=== PATIENT | male | born 1940 | race Asian ===

== ENCOUNTER 2021-10-14 22:50 | Inpatient (IN) | payer MEDICARE, OTHER ==
[~2021-10-14] VITALS: Ht 167.6 cm; Wt 67.1 kg
--- NOTE | 2021-10-14 22:50 | NUR ---
Received/admitted patient from [facility] via ambulance. Awake and alert, oriented to his room, staff, call lights and bed and TV control. Routine admission care done. Plan of care initiated.
[2021-10-14 23:10] VITALS: BP 137/79
[2021-10-14] MEDS ORDERED: SPIR25TA6 PO (23:59)
[2021-10-14] MEDS ORDERED: ATOR10TA PO (23:59)
[2021-10-14] MEDS ORDERED: ONDA4TAB11 PO (23:59)
[2021-10-14] MEDS ORDERED: SENN-261 PO (23:59)
[2021-10-14] MEDS ORDERED: AMLO-212 PO (23:59)
[2021-10-14] MEDS ORDERED: LOSA25TA27 PO (23:59)
[2021-10-14] MEDS ORDERED: CARV25TA2 PO (23:59)
[2021-10-15 04:15] VITALS: BP 104/58
[2021-10-15] MEDS ORDERED: SENNOSIDES 1 TABLET PO PRN (06:45)
--- NOTE | 2021-10-15 07:40 | NUR ---
DR STARKIAN HERE TO SEE PATIENT WITH NEW ORDERS AND NOTED.
[2021-10-15 08:00] VITALS: BP 139/69
[2021-10-15] MEDS: SPIRONOLACTONE 25 MG TABLET PO SCH (09:13)
[2021-10-15] MEDS: LOSARTAN POTASSIUM 25 MG TABLET PO SCH (09:14)
[2021-10-15] MEDS: CARVEDILOL 25 MG TABLET PO SCH ×2 (09:14→16:31)
[2021-10-15] MEDS: REMEDY ESSENTIAL ZINC PASTE 113 GM TOP SCH ×2 (09:15→20:16)
[2021-10-15] MEDS: AMLODIPINE 5 MG TABLET PO SCH ×2 (09:15→16:31)
--- NOTE | 2021-10-15 11:30 | NUR ---
DR AGUIRRE HERE TO SEE AND EXAMINE PATIENT WITH NO NEW ORDERS AT THIS TIME
[2021-10-15] MEDS: ACETAMINOPHEN 325 MG TABLET PO PRN (14:41)
--- NOTE | 2021-10-15 14:42 | NUR ---
PATIENT C/O GENERALISED BODY ACHE MD AWARE WITH ORDER FOR TYLENOL GIVEN ORDERED PATIENTS DAUGHTER IS AT THE BEDSIDE AND ASSISTING WITH TRANSLATION.
[2021-10-15 15:58] VITALS: BP 111/65
--- NOTE | 2021-10-15 16:18 | NUR ---
Social Work Stroke Resources: Relocation Commissioner met with patient and pt's family and informed about the importance of stroke. Patient accepted stroke referrals such as: Stroke Family [facility] at (7-810-9-STROKE) and Caring for a stroke survivor ( ). air brake worker also educated patient on the signs of Stroke and to immediately call 911. Relocation Commissioner provided patient with a stroke educational packet with information such as; Dietary food, what stroke is, risks, emotional support, finding support, medical management, and effects of stroke. SW provided patient with the following caregiving resources: [facility]; ([phone]), [facility]; ([phone]), [facility]; ([phone]).
--- NOTE | 2021-10-15 16:48 | NUR ---
ELIER Stroke Depression Assessment Note: ELIER contacted pt's nurse and requested a psych consult for the pt as pt scored 17 on the post stroke depression phq. Pt's daughter is informed.
--- NOTE | 2021-10-15 17:00 | NUR ---
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
--- NOTE | 2021-10-15 18:00 | NUR ---
RESTING IN BED WITH NO S/S OF DISCOMFORTS AT THIS TIME
[2021-10-15 20:00] VITALS: BP 120/71
[2021-10-15] MEDS: ATORVASTATIN 10 MG TABLET PO SCH (20:16)
[2021-10-16 04:00] VITALS: BP 127/79
--- NOTE | 2021-10-16 07:44 | NUR ---
RECEIVED IN BED AWAKE ALERT AND ORIENTED WITH LANGUAGE BARRIERS ALL NEEDS ANTICIPATED AND SATISFIED MAX ASSIST FOR ALL ADL LEFT LOWER EXT WEAKER THAN THE LEFT UPPER BUT RIGHT UPPER AND RIGHT LOWER EXT WITH GOOD ROM AND SCALLOP SHUCKER CALL LIGHTS AND PERSONAL BELONGINGS ARE WITHIN EASY REACH WILL CONTINUE TO OBSERVE AND FOLLOW PLAN OF CARE WITH PT/OT OUTLINED.
[2021-10-16 07:58] VITALS: BP 104/68
[2021-10-16] MEDS: SPIRONOLACTONE 25 MG TABLET PO SCH (08:28)
[2021-10-16] MEDS: CARVEDILOL 25 MG TABLET PO SCH ×2 (08:29→16:47)
[2021-10-16] MEDS: LOSARTAN POTASSIUM 25 MG TABLET PO SCH (08:29)
[2021-10-16] MEDS: AMLODIPINE 5 MG TABLET PO SCH (08:30)
[2021-10-16] MEDS: REMEDY ESSENTIAL ZINC PASTE 113 GM TOP SCH ×2 (08:31→20:52)
--- NOTE | 2021-10-16 10:36 | NUR ---
DR BORGES OKAYED PSYCH EVAL PER MHU DR MAYORGA IS FLEET SALESPERSON SO I CALLED DR MAYORGA SPOKE WITH HER STATED WILL SEE THE PATIENT TOMORROW CALLED [facility] SENT OVER THE FACE SHEET AND NOTIFIED MELIDA THE NURSE.
--- NOTE | 2021-10-16 13:04 | NUR ---
PATIENT SEEN BY THE PHYSICAL THERAPY AND PER THE THERAPIST HE WAS ONLY ABLE TO STAND AND BACK TO BED.
[2021-10-16 16:00] VITALS: BP 115/66
--- NOTE | 2021-10-16 17:30 | NUR ---
PATIENT NOTED TO BE DISORIENTED DID NOT KNOW WHAT HE WANTED SHOWED HIM THE TRANSLATION PAPER BUT WAS UNABLE TO FIGURE OUT WHAT HE WANTS SO I CALLED HIS DAUGHTER CARMEN AND AFTER SHE SPOKE WITH HIM STATED THAT HE WANTS TO GO HOME SHE STATED THAT SHE WILL COME IN TO SEE PATIENT AND BRING HIM SOME OF HIS HOME FOOD.
--- NOTE | 2021-10-16 18:34 | NUR ---
PATIENTS DAUGHTER CARMEN HERE BROUGHT HIM SOME PURRED FOOD AND HE ATE 100 PERCENT OF THIS FOOD.SEATED UPRIGHT FOR A WHILE WILL CONTINUE TO OBSERVE.
[2021-10-16 20:00] VITALS: BP 128/60
[2021-10-16] MEDS: ATORVASTATIN 10 MG TABLET PO SCH (20:51)
[2021-10-17 04:00] VITALS: BP 127/63
[2021-10-17 08:00] VITALS: BP 142/62
[2021-10-17] MEDS: AMLODIPINE 5 MG TABLET PO SCH (09:13)
[2021-10-17] MEDS: SPIRONOLACTONE 25 MG TABLET PO SCH (09:13)
[2021-10-17] MEDS: CARVEDILOL 25 MG TABLET PO SCH ×2 (09:13→16:42)
[2021-10-17] MEDS: LOSARTAN POTASSIUM 25 MG TABLET PO SCH (09:13)
[2021-10-17] MEDS: REMEDY ESSENTIAL ZINC PASTE 113 GM TOP SCH ×2 (09:14→20:43)
[2021-10-17] MEDS: ENSURE ENLIVE (VAN) 240 ML LIQUID PO SCH ×2 (13:33→16:42)
--- NOTE | 2021-10-17 14:41 | NUR ---
INTERDISCIPLINARY TEAM CONFERENCE
--- NOTE | 2021-10-17 15:11 | NUR ---
INDIVIDUALIZED PLAN OF CARE
[2021-10-17 16:29] VITALS: BP 126/83
--- NOTE | 2021-10-17 18:21 | NUR ---
The patient remained stable during the shift. no acute distress identified. no pain identified. all due meds given. all needs attended. aspiration precaution maintained. Dtr came to visit and brought soup, thickened. Educated on aspiration precaution, noted with understanding. safety measures maintained. the patient used urinal in the afternoon. will endorse to the next shift for continuity of care.
[2021-10-17 20:00] VITALS: BP 122/71
[2021-10-17] MEDS: ATORVASTATIN 10 MG TABLET PO SCH (20:35)
[2021-10-18 04:00] VITALS: BP 129/89
--- NOTE | 2021-10-18 05:38 | NUR ---
Received pt asleep on bed upon initial rounds, easily arousable for care. Denies pain and discomfort. Due medication given and tolerated well. Aspiration precaution observed. Slept throughout the night. All needs attended. Call light placed within reach. Frequent visual checks done.
[2021-10-18 07:43] VITALS: BP 106/71
[2021-10-18 07:53] VITALS: BP 122/56
[2021-10-18] MEDS: SPIRONOLACTONE 25 MG TABLET PO SCH (08:32)
[2021-10-18] MEDS: CARVEDILOL 25 MG TABLET PO SCH ×2 (08:32→16:33)
[2021-10-18] MEDS: LOSARTAN POTASSIUM 25 MG TABLET PO SCH (08:33)
[2021-10-18] MEDS: AMLODIPINE 5 MG TABLET PO SCH (08:33)
[2021-10-18] MEDS: ENSURE ENLIVE (VAN) 240 ML LIQUID PO SCH ×3 (08:33→16:34)
[2021-10-18] MEDS: REMEDY ESSENTIAL ZINC PASTE 113 GM TOP SCH ×2 (08:37→20:41)
--- NOTE | 2021-10-18 10:00 | NUR ---
Received pt AAOx1 to 2 resting on bed upon initial rounds, respiration even and unlabored at room air O2 sat 97% Denies pain and discomfort. Due medication given and tolerated well. seen by speech therapy. Aspiration precaution in place with puree, honey thick liquids diet needs to used spoon for feeding.Up with PT sitting at bed side chair All needs attended. Call light placed within reach. Frequent visual checks done.
--- NOTE | 2021-10-18 13:34 | NUR ---
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
[2021-10-18 15:20] VITALS: BP 116/63
[2021-10-18] MEDS: ACETAMINOPHEN 325 MG TABLET PO PRN (15:47)
[2021-10-18 20:00] VITALS: BP 141/67
[2021-10-18] MEDS: ATORVASTATIN 10 MG TABLET PO SCH (20:39)
[2021-10-19 04:00] VITALS: BP 127/76
--- NOTE | 2021-10-19 05:54 | NUR ---
Received pt asleep on bed upon initial rounds, easily arousable for care. Denies pain and discomfort. Due medication given and tolerated well. Aspiration precaution observed. Slept intermittently throughout the night. Called a few times for sips of water. Pt on diaper, but asks for urinal twice tonight. Able to void without difficulty. All needs attended. Call light placed within reach. Frequent visual checks done.
[2021-10-19 07:39] VITALS: BP 120/62
[2021-10-19] MEDS: LOSARTAN POTASSIUM 25 MG TABLET PO SCH (08:15)
[2021-10-19] MEDS: AMLODIPINE 5 MG TABLET PO SCH (08:15)
[2021-10-19] MEDS: ENSURE ENLIVE (VAN) 240 ML LIQUID PO SCH ×3 (08:15→16:44)
[2021-10-19] MEDS: SPIRONOLACTONE 25 MG TABLET PO SCH (08:15)
[2021-10-19] MEDS: CARVEDILOL 25 MG TABLET PO SCH ×2 (08:15→16:43)
[2021-10-19] MEDS: REMEDY ESSENTIAL ZINC PASTE 113 GM TOP SCH ×2 (08:16→20:27)
[2021-10-19 15:29] VITALS: BP 118/79
--- NOTE | 2021-10-19 18:24 | NUR ---
Patient remained stable during the shift. no distress identified. Denies pain. Aspiration precaution maintained. Kept call light within reach. All due meds given. all needs attended. Safety measures maintained. Will endorse to the next shift for continuity of care
[2021-10-19 20:00] VITALS: BP 133/66
[2021-10-19] MEDS: ATORVASTATIN 10 MG TABLET PO SCH (20:26)
[2021-10-20 04:00] VITALS: BP 129/63
[2021-10-20 08:25] VITALS: BP 114/90
[2021-10-20] MEDS: ENSURE ENLIVE (VAN) 240 ML LIQUID PO SCH ×3 (10:10→17:37)
[2021-10-20] MEDS: CARVEDILOL 25 MG TABLET PO SCH ×2 (10:10→17:37)
[2021-10-20] MEDS: SPIRONOLACTONE 25 MG TABLET PO SCH (10:10)
[2021-10-20] MEDS: LOSARTAN POTASSIUM 25 MG TABLET PO SCH (10:10)
[2021-10-20] MEDS: AMLODIPINE 5 MG TABLET PO SCH (10:10)
[2021-10-20] MEDS: REMEDY ESSENTIAL ZINC PASTE 113 GM TOP SCH ×2 (10:11→20:33)
[2021-10-20 15:34] VITALS: BP 114/66
[2021-10-20] MEDS: ATORVASTATIN 10 MG TABLET PO SCH (20:31)
[2021-10-20 20:59] VITALS: BP 127/43
--- NOTE | 2021-10-21 01:39 | NUR ---
Awake and alert. all needs attended. VSS. No acute distress noted. Fall precautions maintained. Incontinent of urine and BM. Kept clean and dry. Repositioned for comfort.
[2021-10-21] MEDS: ACETAMINOPHEN 325 MG TABLET PO PRN (03:57)
[2021-10-21] MEDS ORDERED: LORAZEPAM 2 MG/1 ML VIAL IM ONE (04:30)
--- NOTE | 2021-10-21 04:43 | NUR ---
Patient gets very confused and yelling this time. Trying to get OOB and saying wanting to go home. Medicated with Tylenol but still trying to get OOB. No PRN for agitation. ASIF valenzuela got an order for Ativan 1 mg IM x1 given as ordered. Will monitor patient for further behavioral activity. Siderails up for safety. Patient to be started on seroquel 12.5 mg BID.
[2021-10-21 04:47] VITALS: BP 145/76
--- NOTE | 2021-10-21 07:22 | NUR ---
Received patient asleep on bed upon initial rounds, Aspiration precaution observed. All needs attended. Call light placed within reach. Frequent visual checks done.
[2021-10-21 08:00] VITALS: BP 122/58
[2021-10-21] MEDS: AMLODIPINE 5 MG TABLET PO SCH (09:07)
[2021-10-21] MEDS: LOSARTAN POTASSIUM 25 MG TABLET PO SCH (09:07)
[2021-10-21] MEDS: QUETIAPINE FUMARATE 25 MG TABLET PO SCH ×2 (09:08→21:26)
[2021-10-21] MEDS: SPIRONOLACTONE 25 MG TABLET PO SCH (09:08)
[2021-10-21] MEDS: ENSURE ENLIVE (VAN) 240 ML LIQUID PO SCH ×3 (09:09→16:51)
[2021-10-21] MEDS: CARVEDILOL 25 MG TABLET PO SCH ×2 (09:09→16:51)
[2021-10-21] MEDS: REMEDY ESSENTIAL ZINC PASTE 113 GM TOP SCH ×2 (09:10→21:26)
[2021-10-21 15:58] VITALS: BP 118/78
--- NOTE | 2021-10-21 19:45 | NUR ---
Received patient in bed. Awake, alert and oriented to person and place. Reoriented patient to date accordingly. No acute distress noted at this time. Aspiration and safety precautions initiated. Will continue to monitor.
[2021-10-21 20:58] VITALS: BP 130/76
[2021-10-21] MEDS: ATORVASTATIN 10 MG TABLET PO SCH (21:26)
[2021-10-22 04:30] VITALS: BP 117/69
--- NOTE | 2021-10-22 05:38 | NUR ---
Patient slept through the night. No acute distress noted at this time. Compliant with medication regimen. All needs attended to and met. Safety and aspirations maintained. Will endorse to day shift nurse.
[2021-10-22 08:05] VITALS: BP 105/84
[2021-10-22] MEDS: AMLODIPINE 5 MG TABLET PO SCH (09:00)
[2021-10-22] MEDS: LOSARTAN POTASSIUM 25 MG TABLET PO SCH (09:00)
[2021-10-22] MEDS: CARVEDILOL 25 MG TABLET PO SCH ×2 (09:00→17:40)
[2021-10-22] MEDS: QUETIAPINE FUMARATE 25 MG TABLET PO SCH ×2 (10:15→20:37)
[2021-10-22] MEDS: SPIRONOLACTONE 25 MG TABLET PO SCH (10:16)
[2021-10-22] MEDS: ENSURE ENLIVE (VAN) 240 ML LIQUID PO SCH ×3 (10:18→17:40)
[2021-10-22] MEDS: REMEDY ESSENTIAL ZINC PASTE 113 GM TOP SCH ×2 (10:19→20:38)
--- NOTE | 2021-10-22 12:13 | NUR ---
Pt is awake, sat in chair with PT. Medications given crushed. Pt has been evaluated by marcial YEE thick liquids required for aspiration precaution. Family at bedside, educated to not give liquids to pt without proper amount of thickener. Comfort measures provided, call light within reach. Will continue to monitor.
[2021-10-22 16:20] VITALS: BP 142/72
--- NOTE | 2021-10-22 18:33 | NUR ---
Pt is more alert, speaks only mandarin but responds with nod when asked how he is doing. Family at bedside feeding pt dinner. Pt is cooperative, comfort measure provided. Will endorse to cnc machinist 2nd shift.
[2021-10-22 20:12] VITALS: BP 117/78
[2021-10-22] MEDS: ATORVASTATIN 10 MG TABLET PO SCH (20:37)
[2021-10-23 04:12] VITALS: BP_SYST 143; BP_SYST 163; BP_DIAS 77; BP_DIAS 90
[2021-10-23 08:06] VITALS: BP 133/86
[2021-10-23] MEDS: AMLODIPINE 5 MG TABLET PO SCH (09:05)
[2021-10-23] MEDS: SPIRONOLACTONE 25 MG TABLET PO SCH (09:05)
[2021-10-23] MEDS: QUETIAPINE FUMARATE 25 MG TABLET PO SCH ×2 (09:05→20:47)
[2021-10-23] MEDS: ENSURE ENLIVE (VAN) 240 ML LIQUID PO SCH ×3 (09:06→17:35)
[2021-10-23] MEDS: LOSARTAN POTASSIUM 25 MG TABLET PO SCH (09:06)
[2021-10-23] MEDS: REMEDY ESSENTIAL ZINC PASTE 113 GM TOP SCH ×2 (09:06→20:48)
[2021-10-23] MEDS: CARVEDILOL 25 MG TABLET PO SCH ×2 (09:06→17:00)
[2021-10-23 16:00] VITALS: BP 109/64
[2021-10-23] MEDS: ATORVASTATIN 10 MG TABLET PO SCH (20:48)
[2021-10-23 21:37] VITALS: BP 111/63
[2021-10-24 04:00] VITALS: BP 117/72
[2021-10-24 07:30] VITALS: BP 118/91
[2021-10-24] MEDS: QUETIAPINE FUMARATE 25 MG TABLET PO SCH ×2 (08:49→20:41)
[2021-10-24] MEDS: SPIRONOLACTONE 25 MG TABLET PO SCH (08:49)
[2021-10-24] MEDS: LOSARTAN POTASSIUM 25 MG TABLET PO SCH (08:50)
[2021-10-24] MEDS: CARVEDILOL 25 MG TABLET PO SCH ×2 (08:50→17:00)
[2021-10-24] MEDS: AMLODIPINE 5 MG TABLET PO SCH (08:50)
[2021-10-24] MEDS: ENSURE ENLIVE (VAN) 240 ML LIQUID PO SCH ×3 (08:51→17:03)
[2021-10-24] MEDS: REMEDY ESSENTIAL ZINC PASTE 113 GM TOP SCH ×2 (08:51→20:45)
--- NOTE | 2021-10-24 13:34 | NUR ---
INTERDISCIPLINARY TEAM CONFERENCE
[2021-10-24 17:18] VITALS: BP 107/68
[2021-10-24 20:00] VITALS: BP 108/56
[2021-10-24] MEDS: ATORVASTATIN 10 MG TABLET PO SCH (20:41)
--- NOTE | 2021-10-25 02:05 | NUR ---
Quiet night. No distress noted. Will monitor patient. Tolerated po meds well. continent of bowel and bladder. No BM noted this shift. Fall precautions maintained. Call sanchez within reach. Siderails up for safety. VSS.
[2021-10-25 04:39] VITALS: BP 92/50
[2021-10-25 07:35] VITALS: BP 124/86
[2021-10-25] MEDS: CARVEDILOL 25 MG TABLET PO SCH ×2 (09:17→17:11)
[2021-10-25] MEDS: AMLODIPINE 5 MG TABLET PO SCH (09:17)
[2021-10-25] MEDS: LOSARTAN POTASSIUM 25 MG TABLET PO SCH (09:18)
[2021-10-25] MEDS: REMEDY ESSENTIAL ZINC PASTE 113 GM TOP SCH ×2 (09:18→20:46)
[2021-10-25] MEDS: SPIRONOLACTONE 25 MG TABLET PO SCH (09:18)
[2021-10-25] MEDS: QUETIAPINE FUMARATE 25 MG TABLET PO SCH ×2 (09:18→20:45)
[2021-10-25] MEDS: ENSURE ENLIVE (VAN) 240 ML LIQUID PO SCH ×3 (09:18→17:11)
[2021-10-25 15:08] VITALS: BP 130/74
[2021-10-25 20:00] VITALS: BP 128/62
[2021-10-25] MEDS: ATORVASTATIN 10 MG TABLET PO SCH (20:44)
--- NOTE | 2021-10-25 21:36 | NUR ---
Awake alert and oriented x2-3. Needs attended. Denies any pain nor any discomfort. Will monitor patient. Incontinent of urine x2 Will monitor patient. No behavioral activity noted.
[2021-10-26 04:00] VITALS: BP 121/74
[2021-10-26 07:35] VITALS: BP 137/69
[2021-10-26] MEDS: LOSARTAN POTASSIUM 25 MG TABLET PO SCH (09:06)
[2021-10-26] MEDS: CARVEDILOL 25 MG TABLET PO SCH ×2 (09:06→17:33)
[2021-10-26] MEDS: SPIRONOLACTONE 25 MG TABLET PO SCH (09:06)
[2021-10-26] MEDS: AMLODIPINE 5 MG TABLET PO SCH (09:06)
[2021-10-26] MEDS: REMEDY ESSENTIAL ZINC PASTE 113 GM TOP SCH ×2 (09:07→21:34)
[2021-10-26] MEDS: ENSURE ENLIVE (VAN) 240 ML LIQUID PO SCH ×3 (09:07→17:33)
[2021-10-26 15:35] VITALS: BP 112/55
--- NOTE | 2021-10-26 15:49 | NUR ---
Received PT Awake alert and oriented x 2-3. Mandarin speaking. Denies any pain nor any discomfort. Up in a W/C by PT for therapeutic exercises tolerated pt seen by speech therapy with an upgrade Diet to nectar thick liquids dysphagia ground moist, daughter Minal made aware, Will monitor patient. CT of the head without contrast done as per ordered. Incontinent B&B urine x2 Will continue to monitor for safety and comfort monitor.
--- NOTE | 2021-10-26 17:15 | NUR ---
Received a called from the Neurologist DR Iverson with new order for aspiring 81 mg daily and increase the Lipitor to 20 mg order noted and carry out.
--- NOTE | 2021-10-26 19:00 | NUR ---
Received patient on bed awake, no shortness of breath noted. With bowel movement at this time, cleaned up, diaper changed, repositioned for comfort.
[2021-10-26 20:00] VITALS: BP 102/52
[2021-10-26] MEDS: QUETIAPINE FUMARATE 25 MG TABLET PO SCH (21:33)
[2021-10-26] MEDS: ATORVASTATIN 20 MG TABLET PO SCH (21:33)
[2021-10-27 04:00] VITALS: BP 114/75
--- NOTE | 2021-10-27 06:28 | NUR ---
patient able to slept well, able to tolerate fluids offered. repositioned for comfort. Left on bed in fair condition.
[2021-10-27 08:00] VITALS: BP 114/74
[2021-10-27] MEDS: SPIRONOLACTONE 25 MG TABLET PO SCH (08:31)
[2021-10-27] MEDS: LOSARTAN POTASSIUM 25 MG TABLET PO SCH (08:32)
[2021-10-27] MEDS: AMLODIPINE 5 MG TABLET PO SCH (08:32)
[2021-10-27] MEDS: ASPIRIN 81 MG TAB.CHEW PO SCH (08:32)
[2021-10-27] MEDS: CARVEDILOL 25 MG TABLET PO SCH ×2 (08:32→16:53)
[2021-10-27] MEDS: REMEDY ESSENTIAL ZINC PASTE 113 GM TOP SCH ×2 (08:33→21:34)
[2021-10-27] MEDS: ENSURE ENLIVE (VAN) 240 ML LIQUID PO SCH ×3 (08:42→17:27)
--- NOTE | 2021-10-27 09:00 | NUR ---
Received PT Awake alert and oriented x 2-3. Mandarin speaking. Denies any pain nor any discomfort. Up in a W/C by PT for therapeutic exercises tolerated well . Incontinent B&B kept clean and dry ,son at bed side. Will continue to monitor for safety and comfort .
[2021-10-27 16:29] VITALS: BP 104/59
[2021-10-27 20:21] VITALS: BP 97/49
[2021-10-27] MEDS: QUETIAPINE FUMARATE 25 MG TABLET PO SCH (21:33)
[2021-10-27] MEDS: ATORVASTATIN 20 MG TABLET PO SCH (21:33)
[2021-10-28 04:24] VITALS: BP 123/61
[2021-10-28 09:43] VITALS: BP 126/67
[2021-10-28] MEDS: ASPIRIN 81 MG TAB.CHEW PO SCH (10:25)
[2021-10-28] MEDS: LOSARTAN POTASSIUM 25 MG TABLET PO SCH (10:25)
[2021-10-28] MEDS: CARVEDILOL 25 MG TABLET PO SCH ×2 (10:26→18:00)
[2021-10-28] MEDS: SPIRONOLACTONE 25 MG TABLET PO SCH (10:26)
[2021-10-28] MEDS: AMLODIPINE 5 MG TABLET PO SCH (10:26)
[2021-10-28] MEDS: REMEDY ESSENTIAL ZINC PASTE 113 GM TOP SCH ×2 (10:27→20:27)
[2021-10-28] MEDS: ENSURE ENLIVE (VAN) 240 ML LIQUID PO SCH ×3 (10:27→18:01)
[2021-10-28 16:27] VITALS: BP 108/60
[2021-10-28] MEDS: ATORVASTATIN 20 MG TABLET PO SCH (20:26)
[2021-10-28] MEDS: QUETIAPINE FUMARATE 25 MG TABLET PO SCH (20:26)
[2021-10-28 20:37] VITALS: BP 120/58
[2021-10-29 04:51] VITALS: BP 128/76
[2021-10-29 08:00] VITALS: BP 138/69
[2021-10-29] MEDS: LOSARTAN POTASSIUM 25 MG TABLET PO SCH (08:12)
[2021-10-29] MEDS: SPIRONOLACTONE 25 MG TABLET PO SCH (08:13)
[2021-10-29] MEDS: ASPIRIN 81 MG TAB.CHEW PO SCH (08:13)
[2021-10-29] MEDS: AMLODIPINE 5 MG TABLET PO SCH (08:13)
[2021-10-29] MEDS: CARVEDILOL 25 MG TABLET PO SCH ×2 (08:13→16:58)
[2021-10-29] MEDS: ENSURE ENLIVE (VAN) 240 ML LIQUID PO SCH ×3 (08:14→16:58)
[2021-10-29] MEDS: REMEDY ESSENTIAL ZINC PASTE 113 GM TOP SCH ×2 (08:14→20:39)
[2021-10-29 16:00] VITALS: BP 100/54
--- NOTE | 2021-10-29 18:55 | NUR ---
The patient remained stable during the shift. Denies discomfort. no distress identified. all due meds given. all needs attended. Kept call light within reach. Safety measures maintained. no concerns identified. will endorse to the next shift for continuity of care.
[2021-10-29] MEDS: ATORVASTATIN 20 MG TABLET PO SCH (20:36)
[2021-10-29] MEDS: QUETIAPINE FUMARATE 25 MG TABLET PO SCH (20:36)
[2021-10-30 08:00] VITALS: BP 115/59
[2021-10-30] MEDS ORDERED: CARVEDILOL 25 MG TABLET PO SCH (09:00)
[2021-10-30] MEDS: REMEDY ESSENTIAL ZINC PASTE 113 GM TOP SCH ×2 (09:11→20:22)
[2021-10-30] MEDS: ASPIRIN 81 MG TAB.CHEW PO SCH (09:11)
[2021-10-30] MEDS: ENSURE ENLIVE (VAN) 240 ML LIQUID PO SCH ×3 (09:11→16:14)
[2021-10-30] MEDS: SPIRONOLACTONE 25 MG TABLET PO SCH (09:11)
[2021-10-30] MEDS: AMLODIPINE 5 MG TABLET PO SCH (09:12)
[2021-10-30] MEDS: LOSARTAN POTASSIUM 25 MG TABLET PO SCH (09:12)
[2021-10-30] MEDS: CARVEDILOL 12.5 MG TABLET PO SCH ×2 (09:14→16:14)
[2021-10-30 16:00] VITALS: BP 102/56
--- NOTE | 2021-10-30 18:20 | NUR ---
The patient remained stable during the shift. no distress identified. No pain noted. Denies discomfort. all due meds given. all needs attended. Kept call light within reach. Safety measures maintained. no concerns noted. will endorse to the next shift for continuity of care.
[2021-10-30 20:09] VITALS: BP 111/68
[2021-10-30] MEDS: ATORVASTATIN 20 MG TABLET PO SCH (20:22)
[2021-10-30] MEDS: QUETIAPINE FUMARATE 25 MG TABLET PO SCH (20:22)
[2021-10-30] MEDS: ACETAMINOPHEN 325 MG TABLET PO PRN (23:05)
[2021-10-31 08:00] VITALS: BP 120/60
[2021-10-31] MEDS: CARVEDILOL 12.5 MG TABLET PO SCH ×2 (09:09→17:11)
[2021-10-31] MEDS: ASPIRIN 81 MG TAB.CHEW PO SCH (09:09)
[2021-10-31] MEDS: ENSURE ENLIVE (VAN) 240 ML LIQUID PO SCH ×3 (09:10→17:11)
[2021-10-31] MEDS: REMEDY ESSENTIAL ZINC PASTE 113 GM TOP SCH ×2 (09:10→21:35)
[2021-10-31] MEDS: LOSARTAN POTASSIUM 25 MG TABLET PO SCH (09:10)
[2021-10-31] MEDS: SPIRONOLACTONE 25 MG TABLET PO SCH (09:10)
[2021-10-31] MEDS: AMLODIPINE 5 MG TABLET PO SCH (09:10)
--- NOTE | 2021-10-31 10:55 | NUR ---
PT WAS SEEN FOR DYSPHAGIA. PT WAS ALERT AND AWARE 2X3. PT WAS GIVEN THE TRIALS OF PUREE DIET WITH NECTAR THICK LIQUID. PT STARTED COUGHING ON THE NECTAR THICK LIQUID. PT WAS ABLE TO SAFELY SWALLOW PUREE DIET WITH HONEY THICK LIQUID. PT WAS ABLE TO CARRY OUT KAVITA MOTOR EXERCISE WITH VISUAL AND VERBAL PROMPTS. RECOMMENDATION PUREE DIET WITH HONEY THICK LIQUID.
--- NOTE | 2021-10-31 15:56 | NUR ---
INTERDISCIPLINARY TEAM CONFERENCE
[2021-10-31 16:29] VITALS: BP 104/66
--- NOTE | 2021-10-31 18:27 | NUR ---
Patient remained stable. Frequent visual checks done. safety measures maintained. all due meds given. all needs attended. kept call light within reach. no other concern identified. will endorse to the next shift for continuity of care.
--- NOTE | 2021-10-31 19:00 | NUR ---
Received patient on bed, alert, no shortness of breath noted. No complaint of pain.
[2021-10-31 20:00] VITALS: BP 103/69
[2021-10-31] MEDS: QUETIAPINE FUMARATE 25 MG TABLET PO SCH (21:26)
[2021-10-31] MEDS: ATORVASTATIN 20 MG TABLET PO SCH (21:26)
[2021-10-31] MEDS: ACETAMINOPHEN 325 MG TABLET PO PRN (22:39)
--- NOTE | 2021-11-01 03:00 | NUR ---
PATIENT AWAKE, NO COMPLAINT OF PAIN, OFFERED FLUIDS. REPOSITIONED FOR COMFORT.
[2021-11-01 04:37] VITALS: BP 137/69
--- NOTE | 2021-11-01 06:48 | NUR ---
PATIENT AWAKE ON BED, NO SHORTNESS OF BREATH NOTED. IN FAIR CONDITION.
[2021-11-01 07:10] LABS: HEMATOCRIT 39.9 % (36.7-47.1); MEAN CORPUSCULAR HEMOGLOBIN 31.9 uug (23.8-33.4); MEAN CORPUSCULAR VOLUME 92.3 fL (73.0-96.2); PLATELET COUNT (AUTO) 208 K/uL (152-348)
[2021-11-01 07:25] LABS: BILIRUBIN,TOTAL 0.5 mg/dL (0.2-1.0); CREATININE 0.7 mg/dL (0.6-1.3); PHOSPHOROUS 3.5 mg/dL (2.5-4.9); POTASSIUM 4.1 mmol/L (3.5-5.1); TOTAL PROTEIN, SERUM 7.4 g/dL (6.4-8.2)
[2021-11-01 08:00] VITALS: BP 123/60
[2021-11-01] MEDS: LOSARTAN POTASSIUM 25 MG TABLET PO SCH (09:19)
[2021-11-01] MEDS: ASPIRIN 81 MG TAB.CHEW PO SCH (09:19)
[2021-11-01] MEDS: CARVEDILOL 12.5 MG TABLET PO SCH ×2 (09:20→17:00)
[2021-11-01] MEDS: AMLODIPINE 5 MG TABLET PO SCH (09:20)
[2021-11-01] MEDS: SPIRONOLACTONE 25 MG TABLET PO SCH (09:20)
[2021-11-01] MEDS: ENSURE ENLIVE (VAN) 240 ML LIQUID PO SCH ×3 (09:22→17:09)
[2021-11-01] MEDS: REMEDY ESSENTIAL ZINC PASTE 113 GM TOP SCH ×2 (09:22→20:51)
[2021-11-01 16:00] VITALS: BP 109/68
[2021-11-01 20:36] VITALS: BP 111/66
[2021-11-01] MEDS: ATORVASTATIN 20 MG TABLET PO SCH (20:51)
[2021-11-01] MEDS: QUETIAPINE FUMARATE 25 MG TABLET PO SCH (20:51)
[2021-11-02 04:00] VITALS: BP 119/92
--- NOTE | 2021-11-02 07:09 | NUR ---
No acute changes, slept throughout the night. All needs attended. Will endorsed to next shift.
[2021-11-02 07:50] VITALS: BP 127/69
[2021-11-02] MEDS: AMLODIPINE 5 MG TABLET PO SCH (09:43)
[2021-11-02] MEDS: CARVEDILOL 12.5 MG TABLET PO SCH ×2 (09:43→19:01)
[2021-11-02] MEDS: ASPIRIN 81 MG TAB.CHEW PO SCH (09:43)
[2021-11-02] MEDS: SPIRONOLACTONE 25 MG TABLET PO SCH (09:43)
[2021-11-02] MEDS: LOSARTAN POTASSIUM 25 MG TABLET PO SCH (09:43)
[2021-11-02] MEDS: ENSURE ENLIVE (VAN) 240 ML LIQUID PO SCH ×3 (09:44→19:01)
[2021-11-02] MEDS: REMEDY ESSENTIAL ZINC PASTE 113 GM TOP SCH ×2 (09:44→20:43)
[2021-11-02 15:47] VITALS: BP 122/69
[2021-11-02 20:26] VITALS: BP 113/59
[2021-11-02] MEDS: ATORVASTATIN 20 MG TABLET PO SCH (20:41)
[2021-11-02] MEDS: QUETIAPINE FUMARATE 25 MG TABLET PO SCH (20:42)
[2021-11-03 04:58] VITALS: BP 121/64
[2021-11-03 08:15] VITALS: BP 108/66
[2021-11-03] MEDS: SPIRONOLACTONE 25 MG TABLET PO SCH (08:46)
[2021-11-03] MEDS: AMLODIPINE 5 MG TABLET PO SCH (08:47)
[2021-11-03] MEDS: LOSARTAN POTASSIUM 25 MG TABLET PO SCH (08:48)
[2021-11-03] MEDS: CARVEDILOL 12.5 MG TABLET PO SCH ×2 (08:49→17:36)
[2021-11-03] MEDS: ASPIRIN 81 MG TAB.CHEW PO SCH (08:49)
[2021-11-03] MEDS: ENSURE ENLIVE (VAN) 240 ML LIQUID PO SCH ×3 (08:51→17:34)
[2021-11-03] MEDS: REMEDY ESSENTIAL ZINC PASTE 113 GM TOP SCH ×2 (08:53→21:15)
[2021-11-03 16:00] VITALS: BP 107/63
--- NOTE | 2021-11-03 19:00 | NUR ---
Received patient on bed, alert, able to understand and follow simple instructions. No complaint of pain or discomfort. No shortness of breath noted.
[2021-11-03 20:41] VITALS: BP 119/58
[2021-11-03] MEDS: ATORVASTATIN 20 MG TABLET PO SCH (21:13)
[2021-11-03] MEDS: QUETIAPINE FUMARATE 25 MG TABLET PO SCH (21:13)
[2021-11-04 04:40] VITALS: BP 124/76
--- NOTE | 2021-11-04 06:30 | NUR ---
Patient on bed, able to slept well. No shortness of breath noted, repositioned for comfort. Patient in fair condition.
[2021-11-04 08:00] VITALS: BP 106/55
[2021-11-04] MEDS: AMLODIPINE 5 MG TABLET PO SCH (10:48)
[2021-11-04] MEDS: CARVEDILOL 12.5 MG TABLET PO SCH ×2 (10:48→16:47)
[2021-11-04] MEDS: LOSARTAN POTASSIUM 25 MG TABLET PO SCH (10:48)
[2021-11-04] MEDS: ASPIRIN 81 MG TAB.CHEW PO SCH (10:48)
[2021-11-04] MEDS: SPIRONOLACTONE 25 MG TABLET PO SCH (10:48)
[2021-11-04] MEDS: ENSURE ENLIVE (VAN) 240 ML LIQUID PO SCH ×3 (10:49→16:47)
[2021-11-04] MEDS: REMEDY ESSENTIAL ZINC PASTE 113 GM TOP SCH ×2 (10:49→20:35)
[2021-11-04 16:00] VITALS: BP 104/62
--- NOTE | 2021-11-04 19:00 | NUR ---
Received patient on bed, alert, no shortness of breath noted, able to understand simple directions, able to make his needs known. Call light placed within reach. No complaint of pain.
[2021-11-04] MEDS: QUETIAPINE FUMARATE 25 MG TABLET PO SCH (20:34)
[2021-11-04] MEDS: ATORVASTATIN 20 MG TABLET PO SCH (20:34)
[2021-11-04 20:41] VITALS: BP 100/62
[2021-11-05 04:40] VITALS: BP 104/57
--- NOTE | 2021-11-05 06:27 | NUR ---
Patient slept well at night. No complaint of pain. Repositioned for comfort. PM care done. Offered fluids when patient is awake, tolerated well. Patient in fair condition.
[2021-11-05 08:01] VITALS: BP 117/69
[2021-11-05] MEDS: ASPIRIN 81 MG TAB.CHEW PO SCH (08:48)
[2021-11-05] MEDS: LOSARTAN POTASSIUM 25 MG TABLET PO SCH (08:48)
[2021-11-05] MEDS: SPIRONOLACTONE 25 MG TABLET PO SCH (08:48)
[2021-11-05] MEDS: AMLODIPINE 5 MG TABLET PO SCH (08:48)
[2021-11-05] MEDS: CARVEDILOL 12.5 MG TABLET PO SCH ×2 (08:48→16:39)
[2021-11-05] MEDS: ENSURE ENLIVE (VAN) 240 ML LIQUID PO SCH ×3 (08:48→16:40)
[2021-11-05] MEDS: REMEDY ESSENTIAL ZINC PASTE 113 GM TOP SCH ×2 (08:48→20:53)
[2021-11-05 12:19] VITALS: BP 95/58
[2021-11-05 15:58] VITALS: BP 105/70
--- NOTE | 2021-11-05 18:43 | NUR ---
Patient remained stable. Aspiration precaution maintained. frequent visual checks done. safety measures maintained. all due meds given. all needs attended. kept call light within reach. no other concern identified. TMS printed in chart, for signature. will endorse to the next shift for continuity of care.
--- NOTE | 2021-11-05 19:00 | NUR ---
Received patient on bed , alert, no shortness of breath, No complaint of pain. Call light placed within reach.
[2021-11-05 20:18] VITALS: BP 105/68
[2021-11-05] MEDS: ATORVASTATIN 20 MG TABLET PO SCH (20:45)
[2021-11-05] MEDS: QUETIAPINE FUMARATE 25 MG TABLET PO SCH (20:45)
[2021-11-06 04:24] VITALS: BP 125/74
--- NOTE | 2021-11-06 06:44 | NUR ---
Patient slept well at night, no complaint of any discomfort. Incontinent with bowel and bladder, diaper changed as needed, skin intact. Repositioned for comfort. Patient in fair condition. Patient for discharge today as ordered.
[2021-11-06 08:04] VITALS: BP 137/77
[2021-11-06] MEDS: ASPIRIN 81 MG TAB.CHEW PO SCH (08:29)
[2021-11-06] MEDS: SPIRONOLACTONE 25 MG TABLET PO SCH (08:29)
[2021-11-06] MEDS: AMLODIPINE 5 MG TABLET PO SCH (08:30)
[2021-11-06 08:31] VITALS: BP 137/77
[2021-11-06] MEDS: LOSARTAN POTASSIUM 25 MG TABLET PO SCH (08:31)
[2021-11-06] MEDS: CARVEDILOL 12.5 MG TABLET PO SCH (08:31)
[2021-11-06] MEDS: ENSURE ENLIVE (VAN) 240 ML LIQUID PO SCH (08:35)
[2021-11-06] MEDS: REMEDY ESSENTIAL ZINC PASTE 113 GM TOP SCH (08:36)
--- NOTE | 2021-11-06 14:00 | NUR ---
patient discharged home with delivery driver/supervisor, picked up by [facility], education provided to daughter name edvin, and patient, meds faxed to pharmacy, educated to follow up with curb supervisor dr devlin, follow up with primary, education provided to daughter about each medication, daughter verbalized understanding of it, education provided about dysphasia food, thickened liquids, daughter edvin verbalized understanding of it. belongings are accounted and signed, sent with patient. no IV access noted on patient.
== END 2021-11-06 13:55 | disposition home health service (06) | DRG 57 ==
PROVIDERS: ADMIT Physical Medicine & Rehabilitation Pain Medicine; ATTEND Physical Medicine & Rehabilitation Pain Medicine
DX: I69.251 Hemiplegia and hemiparesis following other nontraumatic intracranial hemorrhage affecting right dominant side (principal); I69.354 Hemiplegia and hemiparesis following cerebral infarction affecting left non-dominant side; I69.220 Aphasia following other nontraumatic intracranial hemorrhage; R13.10 Dysphagia, unspecified; F03.90 Unspecified dementia, unspecified severity, without behavioral disturbance, psychotic disturbance, mood disturbance, and anxiety; D64.9 Anemia, unspecified; E78.5 Hyperlipidemia, unspecified; F43.23 Adjustment disorder with mixed anxiety and depressed mood; F09 Unspecified mental disorder due to known physiological condition; I10 Essential (primary) hypertension; I48.0 Paroxysmal atrial fibrillation
CPT/HCPCS: 36415; 70450; 83735; 84100; 85025; 97161; 97535-GO-CO; A6209; J2060